=== PATIENT | male | born 1965 | race Caucasian/White ===

== ENCOUNTER → 2018-06-04 08:46 | Outpatient (CLI) | payer OTHER ==
[~2018-06-04] VITALS: Ht 185.4 cm; Wt 127.0 kg
[2018-06-04 10:25] VITALS: Ht 185.4 cm; Wt 127.0 kg
== END | disposition home or self-care (01) ==
LOC: D.FANS 08:46
DX: E66.01 Morbid (severe) obesity due to excess calories (principal)

== ENCOUNTER → 2018-08-05 10:45 | Outpatient (CLI) | payer OTHER ==
[2018-06-04 10:25] VITALS: BMI 36.9
== END | disposition home or self-care (01) ==
LOC: D.RAD 10:30
DX: E66.01 Morbid (severe) obesity due to excess calories (principal)

== ENCOUNTER 2018-08-15 08:15 | Outpatient (CLI) | payer OTHER ==
[2018-06-04 10:25] VITALS: BMI 36.9
== END 2018-08-15 10:25 ==
LOC: D.OPS 08:15
DX: E66.01 Morbid (severe) obesity due to excess calories (principal); Z01.812 Encounter for preprocedural laboratory examination

== ENCOUNTER → 2018-08-28 11:47 | Outpatient (CLI) | payer OTHER ==
[2018-06-04 10:25] VITALS: BMI 36.9
== END | disposition home or self-care (01) ==
LOC: D.RAD 08-20 08:00 → D.RT 08-20 08:00 → D.RAD 08-20 09:00 → D.RT 11:47 → D.RAD 13:00 → D.RT 09-18 14:00
DX: R06.09 Other forms of dyspnea (principal)

== ENCOUNTER 2018-09-09 08:25 | Day surgery (SDC) | payer OTHER ==
[~2018-09-09] VITALS: Ht 185.4 cm; Wt 126.4 kg
[2018-09-09] MEDS ORDERED: NORVASC5 MG PO (09:08)
[2018-09-09] MEDS ORDERED: ZOCOR40 MG PO (09:09)
[2018-09-09] MEDS ORDERED: AGGRENOX 200/251 CAP PO (09:09)
[2018-09-09] MEDS ORDERED: ZYRTEC10 MG PO (09:10)
[2018-09-09] MEDS ORDERED: FLUTICASONE PRO16 GM NASAL (09:10)
[2018-09-09 09:13] LABS: HEMATOCRIT 52.8 % (42.0-54.0); HEMOGLOBIN 18.6 g/dL (13.5-17.5); MCH 31.8 pg (26.0-34.0); MCHC 35.2 g/dL (31.0-37.0); MCV 90.4 fL (80.0-100.0); MEAN PLATELET VOLUME 10.8 fL (7.4-10.4); RBC 5.84 10x6/uL (4.20-6.10); RDW 12.9 % (11.5-14.5); WBC 7.6 10x3/uL (4.8-10.8)
[2018-09-09 09:23] VITALS: BP 136/83; Ht 185.4 cm; Wt 126.4 kg
== END 2018-09-09 11:45 | disposition home or self-care (01) ==
LOC: D.OPS 08:25
PROVIDERS: Anesthesiology
DX: K29.80 Duodenitis without bleeding (principal); K29.70 Gastritis, unspecified, without bleeding; K44.9 Diaphragmatic hernia without obstruction or gangrene; K20.9 Esophagitis, unspecified; E66.01 Morbid (severe) obesity due to excess calories; I10 Essential (primary) hypertension; M19.90 Unspecified osteoarthritis, unspecified site; E78.5 Hyperlipidemia, unspecified; Z01.812 Encounter for preprocedural laboratory examination

== ENCOUNTER 2019-01-23 12:50 | Inpatient (IN) | payer OTHER ==
[~2019-01-23] VITALS: Ht 182.9 cm; Wt 136.4 kg
[~2019-01-23 12:50] MED LIST: AGGRENOX 200/251 CAP PO; FLUTICASONE PRO16 GM NASAL; NORVASC5 MG PO; ZOCOR40 MG PO; ZYRTEC10 MG PO
[2019-01-24 15:26] LABS: HEMATOCRIT 50.8 % (42.0-54.0); HEMOGLOBIN 17.6 g/dL (13.5-17.5); MCHC 34.6 g/dL (31.0-37.0); MCV 89.6 fL (80.0-100.0); RBC 5.67 10x6/uL (4.20-6.10); WBC 6.3 10x3/uL (4.8-10.8)
[2019-01-27 08:51] VITALS: BP 140/85; BMI 40.9
[2019-01-27 15:09] VITALS: BP 136/89
--- NOTE | 2019-01-27 15:24 | NUR ---
RECEIVED PT FROM VAZQUEZ YEE, PT IS ASLEEP AND EASILY AWAKENED, ADMINISTERED ORDERED MEDS PER MAR, PT HAS REQUESTED SOMETHING FOR COUGH, STATED HE HAS HAD SINUS DRAINAGE X1WK AND CAUSING SORE THROAT WELL COUGHM ADVISED I WILL LET DR LINDSAY KNOW OF REQUEST. NO OTHER NEEDS VOICED, CONTINUE WITH PLAN OF CARE. PT HOOKED UP FOR VS MONITORING
--- NOTE | 2019-01-27 15:53 | NUR ---
WENT OVER BARIATRIC CLEAR LIQUID DIET WITH PT AND SPOUSE, PLACED COPY OF DIET IN PT ROOM WITH MEDICINE CUPS IN ROOM. CONTINUE WITH PLAN OF CARE
--- NOTE | 2019-01-27 17:49 | NUR ---
SPOKE WITH DR LINDSAY IN REGARDS TO PT REQUEST FOR COUGH MEDICINE, PER DR LINDSAY START PT ON ANTITUSSIVE REGIMINE. STARTED TESSALON PEARLS AND MUCINEX. CONTINUE WITH PLAN OF CARE
[2019-01-27 19:03] VITALS: BP 136/85; Ht 182.9 cm; Wt 136.4 kg
[2019-01-27 21:35] VITALS: BP 138/83
--- NOTE | 2019-01-27 22:00 | NUR ---
PT ABLE TO SIT UP IN BED, AND STAND INDEPENDENTLY. PT WALKED AROUND ROOM. DENIES PAIN/DISCOMFORT OR WEAKNESS. LAP SITES TO ABDOMEN ARE DRY/INTACT EXCEPT SITE DIRECTLY ABOVE NAVAL. REINFORCED WITH GAUZE, WILL REASSESS.
[2019-01-28 00:39] VITALS: BP 125/68
--- NOTE | 2019-01-28 02:30 | NUR ---
PT DENIES VOIDING ENTIRE SHIFT. ENCOURAGED PT TO GET UP AND TRY, PT COMPLIED. WILL CONTINUE TO MONITOR.
--- NOTE | 2019-01-28 03:24 | NUR ---
I have reviewed this patient and I concur with the Shift Assessment completed by the Licensed Practical Nurse today this shift.
--- NOTE | 2019-01-28 03:30 | NUR ---
PT IN RESTROOM.
--- NOTE | 2019-01-28 04:30 | NUR ---
PT STILL HAS NOT VOIDED, ENCOURAGED TO GET UP AND MOVING AND WENT TO GET A BLADDER SCANNER.
--- NOTE | 2019-01-28 05:00 | NUR ---
PT AMBULATING IN HALLWAY. INDEPENDENT. WILL CONTINUE TO MONITOR.
--- NOTE | 2019-01-28 05:30 | NUR ---
BLADDER SCANNER REVEALS FULL BLADDER, INFORMED PT WE WILL HAVE TO IN&OUT CATH. PT VERBALIZES UNDERSTANDING.
--- NOTE | 2019-01-28 06:15 | NUR ---
SUPPLIES FOR CATH BROUGHT IN ROOM, PT STATES HE WOULD LIKE TO GO TO THE BATHROOM AND RUN WATER AND SEE IF HE CAN GO AGAIN BEFORE HE GETS CATHED.
--- NOTE | 2019-01-28 07:00 | NUR ---
IN AND OUT CATH PERFORMED. PT HAD 1000ML CLEAR, YELLOW URINE. REPORTS RELIEF AFTER REMOVED. DENIES FURTHER NEEDS.
--- NOTE | 2019-01-28 07:53 | NUR ---
AWAKE AND ALERT. ORIENTED X3. NO C/O AT THIS TIME. LUNGS ARE CLEAR BILATERALLLY, OCCASSIONAL DRY COUGH NOTED. SKIN IS INTACT WITHOUT REDNESS EXCEPT 5 SMALL LAP SITES TO ABDOMEN WHICH ARE CLEAN AND DRY. IV TO RIGHT HAND IS PATENT WITHOUT REDNESS AT INSERTION SITE. DENIES NEEDS.
[2019-01-28 08:16] LABS: BASOPHILS 0 % (0-2); EOSINOPHILS 0 % (0-7); HEMATOCRIT 47.1 % (42.0-54.0); HEMOGLOBIN 16.1 g/dL (13.5-17.5); IMMATURE GRANULOCYTES 0.5 % (0-5); LYMPHOCYTES 6.7 % (15-50); MCH 31.3 pg (26.0-34.0); MCHC 34.2 g/dL (31.0-37.0); MCV 91.5 fL (80.0-100.0); MEAN PLATELET VOLUME 10.9 fL (7.4-10.4); MONOCYTES 9.8 % (2-11); PLATELET COUNT 175 10x3/uL (130-400); RBC 5.15 10x6/uL (4.20-6.10); RDW 12.7 % (11.5-14.5); WBC 12.7 10x3/uL (4.8-10.8)
[2019-01-28 08:17] VITALS: BP 130/69
[2019-01-28 08:37] LABS: ALBUMIN 3.5 g/dL (3.4-5.0); ALKALINE PHOSPHATASE 56 U/L (46-116); ALT (SGPT) 95 U/L (10-68); BILIRUBIN - TOTAL 0.39 mg/dL (0.2-1.3); CALC OSMOLALITY 274 mosm/kg (275-300); CALCIUM 8.2 mg/dL (8.5-10.1); CARBON DIOXIDE 26.5 mmol/L (21.0-32.0); CHLORIDE - SERUM 102 mmol/L (98-107); GLUCOSE 142 mg/dL (74-106); POTASSIUM - SERUM 4.3 mmol/L (3.5-5.1); PROTEIN - SERUM 7.1 g/dL (6.4-8.2); SODIUM 136 mmol/L (136-145); UREA NITROGEN 16 mg/dL (7-18); eGFR NON AFRICAN AMERICAN 83 mL/min (90-120)
--- NOTE | 2019-01-28 10:38 | NUR ---
OFF UNIT VIA FOR EXRAY.
[2019-01-28] MEDS ORDERED: ZOFRAN ODT4 MG/UDTAB PO (11:11)
[2019-01-28] MEDS ORDERED: HYDROCODON-ACE1 EAC7 PO (11:11)
[2019-01-28 12:48] VITALS: BP 145/58
--- NOTE | 2019-01-28 13:24 | NUR ---
DISCHARGE INSTRUCTIONS PROVIDED BOTH WRITTEN AND VERBAL. PATIENT VERBALIZED UNDERSTANDING. AT BEDSIDE. IV REMOVED TO RIGHT HAND WITH TIP INTACT. DENIES QUESTIONS. DENIES FURTHER NEEDS. PATIENT DISCHARGED WITH ALL BELONGINGS.
== END 2019-01-28 13:44 | disposition home or self-care (01) | DRG 621 ==
LOC: D.SDCHOLD 01-27 08:20 → D.MS 01-27 08:20 → D.SDCHOLD 01-27 10:15 → D.MS 01-27 14:36
PROVIDERS: Anesthesiology; ADMIT Surgery; ATTEND Surgery
PROC: 0BQT4ZZ Repair Diaphragm, Percutaneous Endoscopic Approach (ICD-10-PCS; 2019-01-27)
PROC: 0DJ08ZZ Inspection of Upper Intestinal Tract, Via Natural or Artificial Opening Endoscopic (ICD-10-PCS; 2019-01-27)
PROC: 0DB64Z3 Excision of Stomach, Percutaneous Endoscopic Approach, Vertical (ICD-10-PCS; principal; 2019-01-27 10:30)
DX: E66.01 Morbid (severe) obesity due to excess calories (principal); Z68.41 Body mass index [BMI] 40.0-44.9, adult; I10 Essential (primary) hypertension; M19.90 Unspecified osteoarthritis, unspecified site; K44.9 Diaphragmatic hernia without obstruction or gangrene; E78.2 Mixed hyperlipidemia

== ENCOUNTER → 2019-04-29 10:06 | Outpatient (CLI) | payer OTHER ==
[2019-01-27 19:03] VITALS: BMI 40.8
[~2019-04-29 10:06] MED LIST changes: +HYDROCODON-ACE1 EAC7 PO; +ZOFRAN ODT4 MG/UDTAB PO
[2019-04-29 10:59] LABS: BASOPHILS 0.2 % (0-2); HEMOGLOBIN 16.7 g/dL (13.5-17.5); IMMATURE GRANULOCYTES 0.2 % (0-5); LYMPHOCYTES 19.5 % (15-50); MCH 30.6 pg (26.0-34.0); MCHC 35.5 g/dL (31.0-37.0); MCV 86.2 fL (80.0-100.0); MEAN PLATELET VOLUME 11.1 fL (7.4-10.4); MONOCYTES 10.2 % (2-11); NEUTROPHILS 63.9 % (40-80); PLATELET COUNT 197 10x3/uL (130-400); RBC 5.45 10x6/uL (4.20-6.10); RDW 14.6 % (11.5-14.5); WBC 6.2 10x3/uL (4.8-10.8)
== END | disposition home or self-care (01) ==
LOC: D.LAB 10:06
PROVIDERS: ATTEND Surgery
DX: E66.01 Morbid (severe) obesity due to excess calories (principal); I10 Essential (primary) hypertension; E78.2 Mixed hyperlipidemia; M15.3 Secondary multiple arthritis